=== PATIENT | male | born 1950 | race Caucasian/White ===

== ENCOUNTER → 2023-07-19 17:14 | Outpatient (REF) | payer MEDICARE, SELFPAY | LOC: MRI 3T 17:14 | PROVIDERS: ATTENDING PHYSICIAN Specialist; FAMILY PHYSICIAN Emergency Medicine | DX: R97.20 Elevated prostate specific antigen [PSA] (principal) | CPT/HCPCS: 72197; A9575 ==

== ENCOUNTER → 2023-07-26 07:57 | Outpatient (REF) | payer MEDICARE, SELFPAY | LOC: HWRAD 07:57 | PROVIDERS: ATTENDING PHYSICIAN Emergency Medicine | DX: Z87.891 Personal history of nicotine dependence (principal) | CPT/HCPCS: 71271 ==

== ENCOUNTER → 2023-09-12 06:30 | Day surgery (SDC) | payer MEDICARE, SELFPAY | LOC: GI 06:30 | PROVIDERS: ATTENDING PHYSICIAN Internal Medicine Gastroenterology | DX: Z12.11 Encounter for screening for malignant neoplasm of colon (principal); Z86.010 Personal history of colon polyps; K57.30 Diverticulosis of large intestine without perforation or abscess without bleeding; K64.8 Other hemorrhoids | CPT/HCPCS: G0105 ==

== ENCOUNTER → 2023-10-24 07:59 | Outpatient (REF) | payer MEDICARE, SELFPAY | LOC: HWRCS 07:59 | PROVIDERS: ATTENDING PHYSICIAN Internal Medicine Interventional Cardiology; FAMILY PHYSICIAN Emergency Medicine | DX: I35.9 Nonrheumatic aortic valve disorder, unspecified (principal) | CPT/HCPCS: 93306 ==

== ENCOUNTER → 2023-12-20 11:59 | Outpatient (REF) | payer MEDICARE, SELFPAY | LOC: HWRAD 11:59 | PROVIDERS: ATTENDING PHYSICIAN Emergency Medicine | DX: R91.1 Solitary pulmonary nodule (principal) | CPT/HCPCS: 71260; Q9967 ==

== ENCOUNTER → 2024-09-18 08:02 | Outpatient (REF) | payer MEDICARE, SELFPAY | LOC: HWRCS 08:02 | PROVIDERS: ATTENDING PHYSICIAN Internal Medicine Interventional Cardiology; FAMILY PHYSICIAN Emergency Medicine | DX: I35.0 Nonrheumatic aortic (valve) stenosis (principal); I35.1 Nonrheumatic aortic (valve) insufficiency | CPT/HCPCS: 93306 ==

== ENCOUNTER → 2024-12-22 07:49 | Outpatient (REF) | payer MEDICARE, SELFPAY | LOC: HWRAD 07:49 | PROVIDERS: ATTENDING PHYSICIAN Internal Medicine Critical Care Medicine; FAMILY PHYSICIAN Emergency Medicine | DX: R91.1 Solitary pulmonary nodule (principal) | CPT/HCPCS: 71250 ==